=== PATIENT | female | born 1960 | race Caucasian/White ===

== ENCOUNTER 2021-04-15 05:11 | Day surgery (SDC) | payer OTHER ==
[2021-04-10 16:02] VITALS: BMI 34.8
[2021-04-15 08:36] VITALS: TEMP 98.2
[2021-04-15 09:19] VITALS: BP 100/71; PULSE 69
== END 2021-04-15 09:27 | disposition home or self-care (01) ==
LOC: JASU-ENDO 05:11
PROVIDERS: ATTEND Internal Medicine Gastroenterology
PROC: 0DBM8ZX Excision of Descending Colon, Via Natural or Artificial Opening Endoscopic, Diagnostic (ICD-10-PCS; 2021-04-15)
PROC: 0DBN8ZX Excision of Sigmoid Colon, Via Natural or Artificial Opening Endoscopic, Diagnostic (ICD-10-PCS; principal; 2021-04-15 08:00)
DX: Z12.11 Encounter for screening for malignant neoplasm of colon (principal); Z86.010 Personal history of colon polyps; D12.4 Benign neoplasm of descending colon; D12.5 Benign neoplasm of sigmoid colon; K57.30 Diverticulosis of large intestine without perforation or abscess without bleeding
CPT/HCPCS: 88305-TC

== ENCOUNTER 2023-09-19 06:51 | Emergency (ER) | payer OTHER ==
[2023-09-19 07:06] VITALS: BP 139/92; PULSE 86; RESP 16; TEMP 99.8; BMI 31.9
[2023-09-19] MEDS ORDERED: LIDOCAINE 5% TOPICAL PATCH ONE (07:37)
[2023-09-19] MEDS ORDERED: METHOCARBAMOL 500 MG TABLET ONE (07:37)
[2023-09-19] MEDS ORDERED: KETOROLAC TROMETHAMINE 30 MG/1 ML VIAL ONE (07:37)
[2023-09-19] MEDS: METHOCARBAMOL 500 MG TABLET PO ONE (07:45)
[2023-09-19] MEDS: KETOROLAC TROMETHAMINE 30 MG/1 ML VIAL IM ONE (07:46)
[2023-09-19] MEDS: LIDOCAINE 5% TOPICAL PATCH TP ONE (08:10)
[2023-09-19] MEDS ORDERED: LIDOCAINE PATCH REMOVAL MC SCH (22:00)
== END 2023-09-19 09:16 | disposition home or self-care (01) ==
LOC: MERGE 06:51 → FER 06:51
PROC: 3E0133Z Introduction of Anti-inflammatory into Subcutaneous Tissue, Percutaneous Approach (ICD-10-PCS; principal; 2023-09-19)
DX: M25.512 Pain in left shoulder (principal); X50.1XXA Overexertion from prolonged static or awkward postures, initial encounter
CPT/HCPCS: 73030-TC-LT-FY; 99284-25